=== PATIENT | male | born 1990 | race Hispanic/Latino ===

== ENCOUNTER 2017-03-14 15:08 | Emergency (ER) | payer BC, SELFPAY ==
[2017-03-14] MEDS ORDERED: Ibuprofen 200 MG TAB ONE ×2 (15:47→16:27)
[2017-03-14] MEDS ORDERED: Ondansetron HCl/PF 4 MG/2 ML Vial ONE (16:27)
[2017-03-14 16:38] LABS: #Lymphocytes 0.5 thou/uL (1.20-3.40); #Monocytes 0.7 thou/uL (0.11-0.59); #Neutrophils 4.3 thou/uL (1.40-6.50); %Lymphocytes 9.8 % (21.0-51.0); Hematocrit 45.9 % (42.0-52.0); Mean Platelet Volume 8.6 fL (7.4-10.4); Red Blood Cell (RBC) Count 5.08 mill/uL (4.70-6.10); White Blood Cell (WBC) Count 5.4 thou/uL (4.8-10.8)
[2017-03-14 16:56] LABS: ALT (SGPT) 15 U/L (8-55); AST (SGOT) 20 U/L (5-34); Alkaline Phosphatase 71 U/L (40-150); Anion Gap 9 mmol/L (10-20); BUN (Urea Nitrogen) 9 mg/dL (8.9-20.6); Bilirubin, Total 0.9 mg/dL (0.2-1.2); Calc. Creatinine Clearance 0 mL/min (70-130); Calcium 9.1 mg/dL (7.8-10.44); Carbon Dioxide 29 mmol/L (22-29); Chloride 101 mmol/L (98-107); Estimated GFR-MDRD Greater than 90; Globulin 2.9 g/dL (2.4-3.5); Protein, Total 7.4 g/dL (6.0-8.3)
== END 2017-03-14 18:58 | disposition home or self-care (01) ==
LOC: ERS 15:08
DX: J06.9 Acute upper respiratory infection, unspecified (principal); R11.2 Nausea with vomiting, unspecified; F17.210 Nicotine dependence, cigarettes, uncomplicated; M41.9 Scoliosis, unspecified
CPT/HCPCS: 80053; 85025; 96361; 96374; J2405

== ENCOUNTER 2018-06-21 18:36 | Emergency (ER) | payer SELFPAY | END 2018-06-21 18:49 | disposition home or self-care (01) | LOC: ERS 18:36 | DX: J30.2 Other seasonal allergic rhinitis (principal); M41.9 Scoliosis, unspecified; F17.210 Nicotine dependence, cigarettes, uncomplicated | CPT/HCPCS: 99281 ==

== ENCOUNTER 2019-04-02 20:17 | Emergency (ER) | payer SELFPAY ==
[2019-04-02] MEDS ORDERED: Fluorescein Opthalmic Strip ONE (21:23)
[2019-04-02] MEDS ORDERED: Lidocaine 2% PF 5 ML VIAL ONE (21:24)
[2019-04-02] MEDS ORDERED: Proparacaine 0.5% Opth 15 ML BOT ONE (21:25)
== END 2019-04-02 22:44 | disposition home or self-care (01) ==
LOC: ERS 20:17
DX: T15.01XA Foreign body in cornea, right eye, initial encounter (principal); X58.XXXA Exposure to other specified factors, initial encounter
CPT/HCPCS: 65220; J2001